=== PATIENT | male | born 2000 | race Caucasian/White ===

== ENCOUNTER 2023-01-28 10:35 | Emergency (ER) | payer OTHER ==
[2023-01-28] MEDS ORDERED: fentaNYL 100 MCG/2 ML SDV IVPUSH ONE ×2 (10:45→13:13)
[2023-01-28] MEDS ORDERED: Lactated Ringers 1,000 ML IV ONE (10:45)
[2023-01-28] MEDS ORDERED: Diphtheria,Pertussis(Acell),Tetanus Vaccine 0.5 ML Syringe IM ONE (11:06)
[2023-01-28] MEDS ORDERED: HYDROmorphone 0.5 MG/0.5 ML Syringe IVPUSH ONE (11:37)
[2023-01-28] MEDS ORDERED: Bacitracin Oint 15 GM Tube TOP SCH (14:15)
== END 2023-01-28 15:35 | disposition home or self-care (01) ==
LOC: JD.ED 10:35
DX: T53.5X1A Toxic effect of chlorofluorocarbons, accidental (unintentional), initial encounter (principal); T23.632A Corrosion of second degree of multiple left fingers (nail), not including thumb, initial encounter; Z23 Encounter for immunization
CPT/HCPCS: 90471; 90715; 93005; 96361; 96374; 96375; 96376; 99283; J1170; J3010; J7120; 99282